=== PATIENT | male | born 1980 | race Caucasian/White ===

== ENCOUNTER 2020-03-18 13:58 | Emergency (ER) | payer BC ==
[2020-03-18 14:02] VITALS: BP 130/79; PULSE 80; RESP 20; TEMP 98.1
[2020-03-18] MEDS ORDERED: LIDOCAINE 1% INJ 10MG/ML (20 ML MDV) SQ STA (14:14)
[2020-03-18] MEDS ORDERED: AMOXIC-POT CLAV 875MG STARTER PACK 2 TAB BTL PO STA (14:14)
[2020-03-18] MEDS ORDERED: DIPH,PERTUS(ACELL)TETVAC-LF 0.5 ML VIAL IM ONE (14:14)
[2020-03-18] MEDS ORDERED: AMOXIC-POT CLAV 875-125MG 1 EACH TAB PO STA (14:14)
--- NOTE | 2020-03-18 14:37 | ED ---
General Adult HPI - General Chief complaint: Animal Bite Stated complaint: Dog Bite R Hand Time Seen by Provider: 03/18/20 14:06 Source: patient, RN notes reviewed, old records reviewed Mode of arrival: ambulatory Limitations: no limitations - History of Present Illness Initial comments: 40-year-old male patient presents to ED for evaluation of dog bite to the right pinky finger. Patient reports that he has 2 dogs that were fighting with each other when he went to break it up he was bitten on the left fifth digit. Does not date of last tetanus. Denies any other complaints. Declines any rabies vaccine. Systemic: Pt denies fatigue, fever/chills, rash. Pt denies weakness, night sweats, weight loss. Neuro: Pt denies headache, visual disturbances, syncope or pre-syncope. HEENT: Pt denies ocular discharge or irritation, otalgia, rhinorrhea, pharyngitis or notable lymphadenopathy. Cardiopulmonary: Pt denies chest pain, SOB, heart palpitations, dyspnea on exertion. Abdominal/GI: Pt denies abdominal pain, n/v/d. : Pt denies dysuria, burning w/ urination, frequency/urgency. Denies new onset urinary or bowel incontinence. MSK: Pt denies loss of strength or function in extremities. Neuro: Pt denies new onset weakness, paresthesias. - Related Data Home Medications Medication Instructions Recorded Confirmed Levothyroxine Sodium [Synthroid] 200 mcg PO DAILY 03/18/20 03/18/20 Previous Rx's Medication Instructions Recorded Amoxicillin/Potassium Clav 1 each PO Q12HR 10 Days #20 tab 03/18/20 [Augmentin 875-125 Tablet] Allergies Allergy/AdvReac Type Severity Reaction Status Date / Time No Known Allergies Allergy Verified 03/18/20 14:02 Review of Systems ROS Statement: Those systems with pertinent positive or pertinent negative responses have been documented in the HPI. ROS Other: All systems not noted in ROS Statement are negative. Past Medical History Past Medical History: Thyroid Disorder History of Any Multi-Drug Resistant Organisms: None Reported Past Surgical History: No Surgical Hx Reported Past Psychological History: No Psychological Hx Reported Smoking Status: Current every day smoker Past Alcohol Use History: None Reported Past Drug Use History: None Reported General Exam - General Exam Comments Initial Comments: Constitutional: NAD, AOX3, Pt has pleasant affect. HEENT: NC/AT, trachea midline, neck supple, no lymphadenopathy. External ears appear normal, without discharge. Mucous membranes moist. Eyes PERRLA, EOM intact. There is no scleral icterus. No pallor noted. Cardiopulmonary: RRR, no murmurs, rubs or gallops, no JVD noted. Lungs CTAB in anterior and posterior edwards. No peripheral edema. Abdominal exam: Abdomen soft and non-distended. No ecchymosis Neuro: CN II-XII grossly intact. No nuchal rigidity. No raccon eyes, no ramsey sign, no hemotympanum. No cervical spinal tenderness. MSK: 2 small punctures to the dorsal aspect of the distal left fifth digit. Non-open. Vigorously irrigated. 1.5 cm laceration to the palmar/medial aspect at the level of the PIP. Vigorously irrigated. No osseous or ligamentous involvement. No foreign body. Loosely approximated 2 simple interrupted sutures. Full active range of motion of digit. Full extension extension intact. Sensation intact. Capillary refill less than 2 seconds.No posterior calf tenderness bilaterally, homans sign negative bilaterally. Posterior tibialis and radial pulse +2 bilaterally. Sensation intact in upper and lower extremities. Limitations: no limitations Course Vital Signs 03/18/20 14:00 Temperature 98.1 F Pulse Rate 80 Respiratory 20 Rate Blood Pressure 130/79 O2 Sat by Pulse 98 Oximetry Procedures - Laceration Laceration #1 Consent Obtained: verbal consent Indication: laceration Site: hand (1) Size (cm): 1 (1.5) Description: linear, stellate Anesthetic Used: lidocaine 1% Anesthesia Technique: local infiltration Amount (mls): 2 Pre-repair: wound explored, irrigated extensively, deep structures intact Type of Sutures: nylon Size of Sutures: 5-0 Number of Sutures: 2 (loose approximation ) Technique: simple, interrupted Patient Tolerated Procedure: well, no complications Medical Decision Making - Medical Decision Making 40-year-old male patient presents to ED for evaluation of dog bite. Patient will signs stable, afebrile. Plain film negative for any acute osseous process. Wounds were irrigated. Open laceration was loosely approximated 2 simple interrupted sutures. Patient started on Augmentin tetanus updated of discharge and outpatient follow-up and return precautions. Case discussed with Dr. Hagan. Disposition Clinical Impression: Dog bite, Laceration Disposition: HOME SELF-CARE Condition: Stable Instructions (If sedation given, give patient instructions): Animal Bite (ED), Laceration (ED) Additional Instructions: follow-up with primary care provider tomorrow. Take antibiotics as directed. Please return for suture removal: Hand: 7-10 days Please monitor for signs and symptoms of infection including: redness, warmth, drainage, discharge. Please return to ED if these signs or symptoms occur, new signs or symptoms develop or if condition worsens in anyway. Prescriptions: Amoxicillin/Potassium Clav [Augmentin 875-125 Tablet] 1 each PO Q12HR 10 Days #20 tab Is patient prescribed a controlled substance at d/c from ED?: No Referrals: None,Stated [Primary Care Provider] - 1-2 days
--- NOTE | 2020-03-18 14:54 | XR ---
EXAMINATION TYPE: XR finger LT DATE OF EXAM: 03/18/2020 Comparison: None TECHNIQUE: 3 views coned-down right fifth finger. Clinical History: 40-year-old male pain after dog bite, lac Findings: No acute fracture, subluxation, dislocation. No retained radiopaque foreign body. Impression: Images coned down to the left fifth finger. No acute osseous abnormality seen.
[2020-03-18] MEDS ORDERED: BACITRACIN OINT 1 EACH PACKET TOPICAL ONE (15:21)
== END 2020-03-18 15:31 | disposition home or self-care (01) ==
LOC: EC 13:58
DX: S61.217A Laceration without foreign body of left little finger without damage to nail, initial encounter (principal); E07.9 Disorder of thyroid, unspecified; Z23 Encounter for immunization; Z79.890 Hormone replacement therapy; F17.200 Nicotine dependence, unspecified, uncomplicated; W54.0XXA Bitten by dog, initial encounter; Y92.009 Unspecified place in unspecified non-institutional (private) residence as the place of occurrence of the external cause
CPT/HCPCS: 73140; 90715; 99284; 90471; 12001; J2001